=== PATIENT | female | born 2000 | race Two or more races ===

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

== ENCOUNTER 2022-04-09 12:33 | Emergency (ER) | payer MEDICAID, OTHER ==
[~2022-04-09] VITALS: Ht 162.6 cm; Wt 65.8 kg
[2022-04-09 12:43] VITALS: BP 121/72
[2022-04-09] MEDS ORDERED: AMOX-277 PO (14:32)
[2022-04-09] MEDS ORDERED: IBUP600T27 PO (14:32)
== END 2022-04-09 14:44 | disposition home or self-care (01) ==
LOC: ER 12:33
DX: H66.92 Otitis media, unspecified, left ear (principal)

== ENCOUNTER 2025-10-22 13:10 | Emergency (ER) | payer MEDICAID ==
[~2025-10-22] VITALS: Ht 162.6 cm; Wt 79.3 kg
[~2025-10-22 13:10] MED LIST: AMOX875T4 PO; IBUP-1454 PO
--- NOTE | 2025-10-22 14:49 | ED.PDOC ---
History of Present Illness HPI Comments 25-year-old, obese female presents with a chief complaint of laceration wound in between the wedge of 1st and 2nd phalanx of left hand. Patient reports on cutting herself by accident in the kitchen w/ a knife when attempting to cut a packaging string, earlier, today. She reports initial bleeding that has since subsided upon arrival to ED. Patient denies any numbness, tingling, or further acute symptoms. Patient has no pertinent MHx. Chief Complaint: Laceration Time Seen by MD: 14:40 Primary Care Provider: NONE Reviewed Notes: Nurses Notes, Medications, Allergies Allergies: Coded Allergies: NO KNOWN ALLERGIES (Unverified , 04/09/22) Home Meds Active Scripts Ibuprofen (Ibuprofen) 600 Mg Tab, 600 MG PO TID, #30 TAB Prov:KWAME WILL 04/09/22 Amoxicillin & Pot Clavulanate (Amoxicillin/Potassium Cla) 875 Mg Tab, 875 MG PO BID, #20 TAB Prov:KWAME WILL 04/09/22 Information Source: Patient Mode of Arrival: Ambulatory Past Medical History PAST MEDICAL HISTORY: Denies Surgical History: Denies all surgeries CASH CONTROL SPECIALIST History: No Pertinent CASH CONTROL SPECIALIST History Social History Smoker: Non-Smoker Alcohol: Denies ETOH Use Drugs: Denies Drug Use Lives In: Home All Other Systems: Reviewed and Negative (As per HPI) Physical Exam General Appearance: No Apparent Distress, Obese HEENT: Normal ENT Inspection, Pharynx Normal, TMs Normal Neck: Full Range of Motion, Non-Tender, Normal, Normal Inspection Respiratory: Chest Non-Tender, Lungs Clear, No Accessory Muscle Use, No Respiratory Distress, Normal Breath Sounds Cardiovascular: No Edema, No JVD, No Murmur, No Gallop, Normal Peripheral Pulses, Regular Rate/Rhythm Breast Exam: Deferred Gastrointestinal: No Organomegaly, Non Tender, No Pulsatile Mass, Normal Bowel Sounds, Soft Genitalia: Deferred Pelvic: Deferred Rectal: Deferred Extremities: No calf tenderness, Normal capillary refill, Normal inspection, Normal range of motion, Non-tender, No pedal edema Musculoskeletal : Apperance: Normal Neurologic: Alert, gutter mouth cutter II-XII nml as Tested, No Motor Deficits, Normal Affect, Normal Mood, No Sensory Deficits Cerebellar Function: Normal Reflexes: Normal Skin: Dry, Lacerations (linear 1cm laceration in between the wedge of 1st and 2nd phalanx of left hand, no active bleeding or foreign body. ), Normal Color, Warm Lymphatic: No Adenopathy Was a procedure done? Was a procedure done?: No Differential Dx Considerations may include: Laceration, avulsion, retained foreign body, neurovascular injuries, among others X-Ray, Labs, Meds, VS Vital Signs Date Time Temp Pulse Resp B/P (MAP) Pulse Ox O2 Delivery O2 Flow Rate FiO2 10/22/25 15:01 95 16 96 Room Air 10/22/25 14:50 98.1 95 16 121/66 (84) 96 98.1 10/22/25 13:11 98.1 99 15 133/85 98 98.1 Current Medications Medications (Trade) Dose Ordered Sig/Imelda Route Start Time Stop Time Status Last Admin Diphtheria/ Tetanus/Acell Pertussis (Boostrix T-Dap) 0.5 ml ONCE ONCE IM 10/22/25 14:45 10/22/25 14:46 DC 10/22/25 14:58 X-Ray, Labs, Meds, VS Comment Procedure-laceration Location: linear 1cm laceration in between the wedge of 1st and 2nd phalanx of left hand, no active bleeding or foreign body. Repair no opted, due to minor wound. Wound was clean. Hemostasis was obtained in the ER * Tetanus updated Education and follow-up instructions provided Keep wound dry for 24 to 48 hours; dry dressing may be changed Protect from sunlight and keep area clean and dry. Use soap and water if it gets dirty High risk of possible scarring and education provided on ways to minimize scarring after wound heals Also provided education on possible complications post procedure including wound dehiscence, infection, etc. Time of 1ST Reevaluation: 14:45 Reevaluation 1ST: Unchanged Patient Education/Counseling: Diagnosis, Treatment, Need For Follow Up Family Education/Counseling: No Family Present SEPSIS Sepsis Screen Date sepsis recognized/suspect: Oct 22, 2025 Time Sepsis recognized/suspect: 131 Recent Procedure: No On Antibiotic Therapy: No Respiratory Rate >20: No Heart Rate >90: Yes Temp<36 C (96.8 F) or >38.3 C: No SBP <90 or MAP <65 mmHG: No New Acute Mental Status Change: No Is the patient on CPAP, BIPAP,: No Vital Signs Date Time Temp Pulse Resp B/P (MAP) Pulse Ox O2 Delivery O2 Flow Rate FiO2 10/22/25 15:01 95 16 96 Room Air 10/22/25 14:50 98.1 95 16 121/66 (84) 96 98.1 10/22/25 13:11 98.1 99 15 133/85 98 98.1 Medications Medications Dose Ordered Sig/Imelda Route Start Time Stop Time Status Last Admin Dose Admin Diphtheria/ Tetanus/Acell Pertussis 0.5 ml ONCE ONCE IM 10/22/25 14:45 10/22/25 14:46 DC 10/22/25 14:58 Departure 1 Departure Time of Disposition: 14:49 Impression: Primary Impression: Laceration Disposition: 01 HOME / SELF CARE / HOMELESS Condition: Stable Discharged With: Self Critical Care Note Critical Care Time?: No Stability Stability form required: No Heart Score Heart Score: Heart Score Response (Comments) Value History N/A 0 EKG N/A 0 Age N/A 0 Risk Factors N/A 0 Troponin N/A 0 Total 0 I personally scribed for TAYLOR PILLAI NP ([email or web address]) on 10/22/25 at 14:49. Electronically submitted by Ki Barragan ([email or web address]). TAYLOR PILLAI NP Oct 22, 2025 14:49
[2025-10-22 14:50] VITALS: BP 121/66; TEMP 98.1
[2025-10-22] MEDS: TETANUS-DIPTH-ACEL PERTUSSIS 0.5ML SYR Tdap IM ONE (14:58)
[2025-10-22 15:01] VITALS: PULSE 95; RESP 16; O2SAT 96
== END 2025-10-22 15:00 | disposition home or self-care (01) ==
LOC: ER 13:10
DX: S61.412A Laceration without foreign body of left hand, initial encounter (principal); W26.0XXA Contact with knife, initial encounter; Y93.89 Activity, other specified; Y92.89 Other specified places as the place of occurrence of the external cause; Y99.8 Other external cause status
CPT/HCPCS: 90471; 90715